=== PATIENT | male | born 1960 | race Caucasian/White ===

== ENCOUNTER 2019-04-14 05:46 | Outpatient (RCR) | payer MEDICAID, SELFPAY | END 2019-04-15 11:00 | disposition home or self-care (01) | LOC: ONCRAD 05:46 | PROVIDERS: Family Provider Nurse Practitioner; Referring Provider Internal Medicine Medical Oncology; Visit Provider Radiology Radiation Oncology | DX: Z51.0 Encounter for antineoplastic radiation therapy (principal); C34.31 Malignant neoplasm of lower lobe, right bronchus or lung; R04.2 Hemoptysis; F17.210 Nicotine dependence, cigarettes, uncomplicated; Z79.891 Long term (current) use of opiate analgesic | CPT/HCPCS: 77280; 77290; 77300; 77301; 77334; 77338; 77386 ×2; 99205 ==

== ENCOUNTER 2019-04-15 17:45 | Inpatient (IN) | payer MEDICAID, SELFPAY | END 2019-04-18 14:30 | disposition skilled nursing facility (03) | DRG 871 | PROVIDERS: Admitting Provider Internal Medicine; Family Provider Nurse Practitioner; Visit Provider Family Medicine | DX: A41.9 Sepsis, unspecified organism (principal); J18.9 Pneumonia, unspecified organism; C34.90 Malignant neoplasm of unspecified part of unspecified bronchus or lung; E87.1 Hypo-osmolality and hyponatremia; R04.2 Hemoptysis; M54.5 Low back pain; G89.29 Other chronic pain; J43.9 Emphysema, unspecified; K21.9 Gastro-esophageal reflux disease without esophagitis; E03.9 Hypothyroidism, unspecified; Z87.442 Personal history of urinary calculi; F41.8 Other specified anxiety disorders; I25.10 Atherosclerotic heart disease of native coronary artery without angina pectoris; F17.210 Nicotine dependence, cigarettes, uncomplicated; Z79.891 Long term (current) use of opiate analgesic ==

== ENCOUNTER 2019-04-19 06:10 | Outpatient (RCR) | payer MEDICAID, SELFPAY | END 2019-04-26 00:01 | LOC: LAB 06:10 | PROVIDERS: Family Provider Nurse Practitioner; Visit Provider Family Medicine | DX: E03.9 Hypothyroidism, unspecified (principal); R52 Pain, unspecified; J44.9 Chronic obstructive pulmonary disease, unspecified; F41.9 Anxiety disorder, unspecified | CPT/HCPCS: 36415; 80053 ×2; 80061 ×2; 84439 ×2; 84443 ×2; 85025 ×2 ==

== ENCOUNTER 2019-04-22 17:15 | Inpatient (IN) | payer MEDICAID, SELFPAY | END 2019-04-26 20:04 | disposition home or self-care (01) | DRG 882 | LOC: NP 04-26 09:41 | PROVIDERS: Admitting Provider Psychiatry & Neurology Psychiatry; Family Provider Nurse Practitioner; PCP Nurse Practitioner; Referring Provider Nurse Practitioner; Visit Provider Psychiatry & Neurology Psychiatry | DX: F43.25 Adjustment disorder with mixed disturbance of emotions and conduct (principal); R45.851 Suicidal ideations; Z28.21 Immunization not carried out because of patient refusal; F17.210 Nicotine dependence, cigarettes, uncomplicated; E11.9 Type 2 diabetes mellitus without complications; I25.10 Atherosclerotic heart disease of native coronary artery without angina pectoris; I11.0 Hypertensive heart disease with heart failure; I50.9 Heart failure, unspecified; G89.29 Other chronic pain; M54.9 Dorsalgia, unspecified; F41.9 Anxiety disorder, unspecified; Z91.5 Personal history of self-harm; J43.9 Emphysema, unspecified | CPT/HCPCS: 99239 ==

== ENCOUNTER 2019-05-03 05:46 | Outpatient (RCR) | payer MEDICAID, SELFPAY ==
--- NOTE | 2019-05-03 11:38 | ONCRAD TMN_ITS ---
Radiation Oncology Weekly Treatment Management Patient: Kade Adams MR#: [id number] : 1960 Age: 58 Sex: Male Dictated by: Dr. Mario Johnston Date of Service: 05/03/2019 Referring Physician(s) : Irving Dixon M.D. Primary Diagnosis: C34.91 - Malignant neoplasm of unspecified part of right bronchus or lung, Diagnosed 03/25/2019 (Active) Radiotherapy to date: Course: RT Lung 50Gy, Treatment Site: RT Lung 50Gy, Ref. ID: [id number], Energy: 6X, Dose/Fx (cGy): 250, #Fx: , Dose Correction (cGy): 0, Total Dose (cGy): 1,750, Start Date: 04/13/2019, Elapsed Days: 20 Current Complaints/Interval History: Constitutional Complains of lack of appetite, severe fatigue and weight loss of 5.6 lbs. since last OTV on 04/13/19. Complains of significant pain in b/l lower extremities. Denies fever and night sweats. ENMT Denies odynophagia or dysphagia. Respiratory Complains of a severe cough, chronic dyspnea associated with more than usual activities and hemoptysis that is streaky and is worse in the morning. Current Medications: Cyproheptadine HCl, cytomel, dexamethasone, dULoxetine HCl, duragesic-50, duragesic-50, ibuprofen, mirtazapine, oxyCODONE HCl, oxyCODONE HCl, pantoprazole Sodium, qUEtiapine Fumarate, senokot S. Allergies: Bleach and Ammonia. Vital Signs: Performed on 05/03/2019 10:50 AM BMI - 21.086 kg/m2, Height - 59.00 in, Weight - 104.4 lbs, Temperature - 98.9 f, Pulse - 112, Respiration - 20, O2 Sat - 99 %, Pain - 7, BP - 125/ 77 mm(hg) Physical Exam: Appears stable, no skin erythema or desquamation. Performance Status: 2 - Ambulatory/capable of all self-care, unable to perform any work activities. Up and about more than 50% of waking hours. (ECOG) Lab: None pending in Radiation Oncology. Imaging: No new diagnostic imaging was performed since the last weekly treatment visit. All radiation therapy related imaging (including but not limited to CBCT generated images) was reviewed. Appropriate changes, if any, were made to assure accurate target localization. Impression/Plan: Tolerating treatment well with expected side effects. Continue treatment as planned. The patient has had multiple questions about the prognosis and indicated that he does not care about prolonging his life while he is in severe pain. I have explained to him about the diagnosis and nature of his lung cancer as well as the goal of current treatment. He expressed good understanding and questions were answered to his satisfaction. He said he has blood clots and will see Dr. Dixon for treatment and discussion of his pain in the lower extremities. I encouraged him to go to see Dr. Dixon. CPT: 32300 Signed by: Dr. Mario Johnston>05/03/2019 11:37:02 AM <<Signature on File>>
== END 2019-05-27 23:59 | disposition home or self-care (01) ==
LOC: ONCRAD 05:46
PROVIDERS: Family Provider Nurse Practitioner; Referring Provider Radiology Radiation Oncology; Visit Provider Radiology Radiation Oncology
DX: Z51.0 Encounter for antineoplastic radiation therapy (principal); C34.91 Malignant neoplasm of unspecified part of right bronchus or lung; R63.4 Abnormal weight loss; M79.605 Pain in left leg; M79.604 Pain in right leg; Z79.891 Long term (current) use of opiate analgesic
CPT/HCPCS: 77014; 77336; 77386; 77427

== ENCOUNTER 2019-06-17 11:35 | Outpatient (CLI) | payer MEDICAID, SELFPAY | END 2019-06-17 11:36 | disposition home or self-care (01) | LOC: ONCMED 15:32 | PROVIDERS: Family Provider Nurse Practitioner; Visit Provider Internal Medicine Medical Oncology | DX: Z01.89 Encounter for other specified special examinations (principal) ==

== ENCOUNTER 2019-06-23 05:46 | Outpatient (RCR) | payer MEDICAID, SELFPAY ==
[2019-06-01 16:22] LABS: Basophils % 0.1 %; Eosinophils % 0.1 %; Hematocrit 37.9 % (42.0-52.0); Hemoglobin 12.2 g/dL (11.7-16.6); Lymphocytes % 11.8 %; Mean Corpuscular HGB Conc 32.2 g/dL (30.0-36.0); Mean Corpuscular Hemoglobin 29.4 pg (28.0-34.0); Mean Corpuscular Volume 91.3 fL (80-94); Mean Platelet Volume 9.9 fL (7.4-10.4); Monocytes # 1.5 10^3/uL (0.2-0.9); Monocytes % 8.9 %; Neutrophils # 12.9 10^3/uL (1.8-7.7); Neutrophils % 78.1 %; Nucleated Red Blood Cells % 0 %; Platelet Count 226 10^3/cmm (130-400); Red Blood Count 4.15 10^6/uL (4.1-5.3); Red Cell Distribution Width 16.1 % (12.1-15.1); White Blood Count 16.5 10^3/uL (4.0-10.0)
[2019-06-01 16:50] LABS: Alanine Aminotransferase < 5 U/L (0-41); Albumin Level 3.1 g/dL (3.5-5.2); Alkaline Phosphatase 138 IU/L (40-130); Anion Gap 19.3 (5-19); Aspartate Amino Transferase 10 U/L (0-40); Blood Urea Nitrogen 10 mg/dL (6-20); Calcium 9.2 mg/dL (8.5-10.5); Carbon Dioxide 24 mmol/L (22-29); Chloride 95 mmol/L (98-107); Globulin 3.6 g/dL (1.3-4.6); Glomerular Filtration Rate 220.9 mL/min (90-130); Glucose 126 mg/dL (65-115); Potassium 4.3 mmol/L (3.5-5.1); Sodium 134 mmol/L (136-145); Thyroid Stimulating Hormone 0.41 uIU/mL (0.27-4.20); Total Bilirubin 0.3 mg/dL (0.15-1.2); Total Protein 6.7 g/dL (6.6-8.7)
--- NOTE | 2019-06-05 21:35 | ONC FU_ITS ---
[facility] Patient Note Patient: Kade Perez Unit #: [id number]: 1960 Dictated By: Daryn MccrayDate of Visit: Jun 02, 2019 Onc MED Follow-Up/Prog Note Chief Complaint: Non-small cell carcinoma involving the lower lobe of the RIGHT lung History of Present Illness: Mr. 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 He has had multiple medical illnesses including COPD and CHF as well as GERD, hypothyroidism, nephrolithiasis, and depression. He has a long history of smoking up to 2 packs of cigarettes daily and he has a history of substance abuse. In March [address] pulmonary angiogram done to the emergency room for suspected pulmonary embolism. There was no evidence of pulmonary embolism on that study but it did show a left lower lobe superior segment spiculated nodule measuring 2.3 x 1.2 x 3.1 cm which was felt to be suspicious for neoplasm. An additional nodule in the right lower lobe posterior segment measured 1.1 x 1.7 x 1.1 cm. He declined any further evaluation at that time. On February 20, [address] from angiogram done to the emergency room. The study again was negative for pulmonary embolism but there was a dense consolidation noted in the right lower lobe and increase in size of the right lower lobe spiculated nodule. He was admitted to the Neuropsych Unit for depression and suicidal ideation on 02/28/2019 and again on 03/10/2019. CT scans of the chest, abdomen and pelvis on 03/18/2019 showed nodular density at the left lung base measuring 2.78 cm and progressive changes consistent with a large tumor involving the basilar portion of the right lower lung. Multiple hypodensities in the liver appeared stable and were felt to be consistent with cyst. The left adrenal gland appears slightly prominent measuring 3.0 cm. Bronchoscopy on 03/22/2019 showed a fungating mass lesion in the superior segment of the right lower lobe as well as lateral and posterior basal segments of the right lower lobe. Right upper lobe and right middle lobe bronchi appeared normal on the bronchoscopy. The left bronchial tree also showed no abnormalities. Biopsies from the right lower lobe mass showed poorly differentiated carcinoma. Mr. Perez was seen Dr. Dixon as an inpatient on 03/31/2019 for consultation for the newly diagnosed lung cancer. At that time he had been feeling very poorly from a general standpoint. 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 He states he lost at least 40 pounds in the last year. He feels that he has some low-grade fever at times and intermittent sweating. He has had no complains of headache but has occasional lightheadedness. He stated that he had been short of breath with activity and had had persistent cough. He has been having some intermittent hemoptysis as well. He complained of pain in the mid chest area. He also been having a lot of nausea and gastritis symptoms. He had had significant musculoskeletal pain mainly in the joints and predominantly in the lower extremities. He did not have any focal neurological symptoms at that time. It was recommended that he have palliative radiation and pursue complete staging with PET CT and MRI of the brain. The PET CT and MRI were set up to be done as outpatient. However in the meantime he was started on extended release morphine and MSIR for breakthrough pain. PET/CT imaging from 04/09/2019 reported a poorly defined right lower lobe consolidation measuring roughly 6.4 x 3.9 cm with an SUV of 12.2. Malignancy cannot be reliably differentiated from adjacent atelectasis. A right lower lobe perihilar node has SUV of 9.5 indicating metastatic disease. There was a 2.8 x 2.0 cm nodule in the superior segment of the left lower lobe with an SUV of 6.3, consistent with metastasis. Mediastinal nodes and there anterior right prevascular and subcarinal regions are FDG negative, consistent with local metastatic disease. A right hepatic lobe hypodensity is FDG negative. There were no findings to indicate osseous metastatic disease. Mr. Perez presented for radiation of the right lung however his visits were inconsistent and he did not complete the recommended therapy. He received 7 out of 20 recommended fractions. His start date was 04/13/2019 and the end of treatment was documented as 05/03/2019. Mr. Perez did have [employer] sequencing performed by [facility]. His PD-L1 (22c3) IHC was positive, high expression, TPS: 50%. ALK was negative/0. BRAF by IHC V600E was negative. EGFR [id number] by IHC was negative. EGFR L85 BR by IHC was equivocal and there is no results were reported for this biomarker. Mismatch repair status by IHC was proficient. TrkA/B/C by IHC was negative/0. MLH1 and MSH2 were both reported as positive positive/14, 60%. MSH6 positive/14, 10%. PM52 was positive/14/10%. PTEN positive/14/60%. All biomarkers tested by sequencing were found to have quality not sufficient and therefore not reported. Given the results of the [facility] report, Mr Perez was offered treatment with immunotherapy with pembrolizumab. He is here today to start his first cycle. He is accompanied by his sister. He reports that he is now living with her. She reports that he is gained some weight and is doing much better since he began living with her. He has no new concerns today. He is very responsive and participates in his care well. We did review all the medications that he brought in and we are able to dispose of some extra/repetitive bottles of current prescriptions that he had. This helped clarify why he needed to be taking. He has not had any recent hemoptysis. He states his pain is about the same. He states that after he switched to the Duragesic and oxycodone he feels that the morphine controlled release works better than the Duragesic for his pain. He does feel the oxycodone works well for breakthrough. After discussion with Dr. Dixon will will resume his MS Contin at 60 mg every 12 hours and continue his oxycodone. He denies any headaches or vision changes. He has had no recent nausea or vomiting. He states his appetite is fair. He states he is eating better since living with his sister. He has no new concerns today. His ECOG is 2 Past Medical History: Chronic obstructive pulmonary disease Congestive heart failure Depression Emphysema Gastroesophageal reflux disease Hypothyroidism Nephrothiliasis Past Surgical History: Lithotripsy with left ureteral stent placement Allergies: Ammonia and Bleach. Medications: Cyproheptadine HCl 1 (4 mg) Tablet Oral at bedtime Cytomel 2 Tablet (of 5 mcg) Oral daily Dexamethasone 1 Tablet (of 4 mg) Oral b.i.d. DULoxetine HCl 1 (60 mg) Capsule Delayed Release Particles Oral daily Duragesic-50 1 (50 mcg/hr) Patch 72 Hr Transdermal q 72 hours Ibuprofen 1 (600 mg) Tablet Oral q 6 hours Liothyronine Sodium 2 Tablet (of 5 mcg) Oral daily Mirtazapine 1 (30 mg) Tablet Oral at bedtime Ondansetron HCl 1 Tablet (of 4 mg) Oral q 8 hours PRN oxyCODONE HCl 0.5 - 1 (30 mg) Tablet Oral q 4 hours PRN Pantoprazole Sodium 1 (40 mg) Tablet, enteric coated Oral b.i.d. QUEtiapine Fumarate 2 Tablet (of 300 mg) Oral at bedtime Redness Reliever Eye Drops Solution Ophthalmic daily Senokot S 2 Tablet (of 8.6-50 mg) Oral b.i.d. traZODone HCl 1 Tablet (of 100 mg) Oral at bedtime Zolpidem Tartrate 1 Tablet (of 5 mg) Oral at bedtime Family History: Social History: Mr. Perez is and he is unemployed. He is a daily smoker who has smoked 2.0 packs/day for 49 years. He is a former drinker. Mr. Perez reports the following support systems: lives in a detention and adequate transportation available for expected visits. His diet consists of regular meals. He indicates his activity level as: sedentary. Is smoking less and is currently using the Electronic cigarettes. Review Of Symptoms: Constitutional Denies fevers, chills, night sweats, excessive fatigue or recent weight loss. Allergic/Immunologic No reactions. Eyes Denies significant visual changes. No diplopia. No amaurosis. ENMT Denies changes in hearing, sore throat, mouth sores, difficulty or changes in swallowing ability, and/or sinus drainage. Endocrine No diabetes, thyroid disease or hormone replacement. Denies hot flashes or night sweats. Hematologic/Lymphatic Denies easy bruising or bleeding. The patient denies any tender or palpable lymph nodes. Respiratory Denies dyspnea on exertion, chest pain, cough or hemoptysis. Denies orthopnea. Cardiovascular Denies anginal chest pain, palpitations or orthopnea. Gastrointestinal Denies nausea, vomiting, diarrhea, GI bleeding, or constipation. Denies change in bowel habits and/or stool color, no heartburn or early satiety. Genitourinary (M) Denies hematuria, dysuria, increased frequency, urgency, hesitancy or incontinence. Musculoskeletal Persistent joint pain but denies swelling or redness. No decreased range of motion. Integumentary Denies chronic rashes, inflammation, ulcerations or skin changes. Neurologic Denies headache, blurred vision, and no areas of focal weakness or numbness. Slow gait. No sensory problems. Psychiatric Denies current problems with insomnia, depression, digna or mood swings. Vital Signs: Performed on Jun 02, 2019 15:25 Height - 59.00 in Weight - 133.8 lbs (LOW) BSA - 1.55 sq.m BMI - 27.02 Temperature - 97.3 F (LOW) Pulse - 101 /min (HIGH) Respiration - 18 /min BP - 128/92 mm(hg) O2 Sat - 99 % Pain - 6,2 - Ambulatory/capable of all self-care, unable to perform any work activities. Up and about more than 50% of waking hours. (ECOG) Physical Examination: Constitutional Alert, oriented, no acute distress. Skin pink, warm and dry. Head Normocephalic; atraumatic. Eyes Conjunctivae and sclerae are clear and without icterus. Pupils are reactive and equal. Neck Supple without masses or thyromegaly. No jugular venous distension. Hematologic/Lymphatic No petechiae or purpura. No tender or palpable lymph nodes in the cervical or supraclavicular areas. Respiratory Lungs are clear to auscultation without rhonchi or wheezing. Cardiovascular Regular rate and rhythm of heart without murmurs,clicks, gallops or rubs. Back/Spine Non-tender to palpation. Extremities No visible deformities, no cyanosis, clubbing or edema. Musculoskeletal No tenderness or swelling, normal range of motion without obvious weakness. Integumentary No rashes or lesions. Neurologic No sensory or motor deficits, normal cerebellar function, normal gait. Psychiatric Alert and oriented times three. Coherent speech. Verbalizes understanding of our discussions today. Laboratory: Impression: 1. Newly diagnosed non small cell carcinoma of the right lower lobe-PD-L1 positive by IHC. 2. Right lower lobe perihilar nodule with an SUV of 9.5; 2.8 x 2 point centimeter nodule in superior segment of the left lung lower lobe-consistent with metastasis. Mediastinal nodes in the anterior right perivascular and subcarinal node are FDG G+ consistent with local metastatic disease. He also has significant pain in the lower extremities presumed to be related to the underlying malignancy although no known bone metastases have been identified. 3. COPD 4. GERD. 5. Hypothyroidism. 6. Nephrolithiasis. 7. There is reported history of coronary artery disease and congestive heart failure, but this is not confirmed. 8. Longstanding history of anxiety/depression. 9. Deep vein thrombosis affecting the left popliteal and deep calf veins on 04/24/2019. Reportedly received Lovenox and patient was discharged without anticoagulation. He will start Eliquis starter pack today which consist of 10 mg twice daily for 7 days then 5 mg twice daily. Mr Perez has been informed by Dr Dixon and Dr Johnston that his treatment is pallative. He did not complete the recommended radiation therapy. He has agreed to a trial of immunotherapy with pembrolizumab. He will start his first cycle today. Plan: 1. Proceed with cycle 1 pembrolizumab 200 mg. 2. Labs from June 01, 2019 were reviewed in detail discussed with Mr. Allegra Levin and his sister. WBC 16.5, hemoglobin 12.2, platelets 226,000, ANC is 12,900. Potassium 4.3 creatinine 0.4 LFTs are normal alk phos is 138. TSH is 0.41. 3. He will stop the Duragesic patch and resume morphine extended release at 60 mg every 12 hours. He also had refill on his oxycodone. Both prescriptions were authorized with Dr. Dixon???written prescription. 4. We will plan to see him back in 3 weeks with CBC, CMP and TSH. 5. He also had refills of his guaifenesin, Ambien and pro-air HFA. 6. It was elected to start him on Eliquis starter pack due to findings on the left lower extremity venous Doppler from 04/24/2019. The common femoral, femoral and proximal from the femoral veins were patent without thrombus however there was acute deep vein thrombosis affecting the popliteal and deep calf veins. He reportedly received Lovenox in the hospital but was discharged without any anticoagulation. He is aware of the initiation of the Eliquis and will pick it up today. 7. Specific side effects of immunotherapy discussed included but not limited to: ???Pneumonitis: New or worsening cough; chest pain; and shortness of breath. ???Colitis: Diarrhea or more bowel movements than usual; blood in stools or dark, tarry, sticky stools; and severe stomach area (abdomen) pain or tenderness. ???Hepatitis: Jaundice; severe nausea or vomiting; pain on the right side of the abdomen; drowsiness; dark urine; bleeding or bruise more easily than normal. ???Nephritis and Kidney Failure: Including decrease in amount of urine; hematuria; lower extremity edema; and loss of appetite. ???Thyroid and Pituitary changes that may include: Headaches that will not go away or unusual headaches; extreme tiredness, weight gain or weight loss; changes in mood or behavior, such as decreased sex drive, irritability, or forgetfulness; dizziness or fainting; hair loss; feeling cold; constipation; and voice gets deeper. ???Rash: Changes in eyesight; severe or persistent muscle or joint pains; and severe muscle weakness. The majority of this visit (greater than 45 minutes) was time spent face to face in review of plan of care, side effect identification and where to call for questions or concerns. Signed By: Daryn Mccray-, AOCNP Irving Dixon MD <<Signature on File>>
[2019-06-17 14:39] LABS: Basophils % 0.1 %; Eosinophils % 0.2 %; Hematocrit 40.2 % (42.0-52.0); Hemoglobin 12.6 g/dL (11.7-16.6); Lymphocytes # 1.2 10^3/uL (0.8-4.8); Lymphocytes % 11.9 %; Mean Corpuscular HGB Conc 31.3 g/dL (30.0-36.0); Mean Corpuscular Hemoglobin 28.2 pg (28.0-34.0); Mean Corpuscular Volume 89.9 fL (80-94); Mean Platelet Volume 9.7 fL (7.4-10.4); Monocytes # 0.7 10^3/uL (0.2-0.9); Monocytes % 6.9 %; Neutrophils # 8.1 10^3/uL (1.8-7.7); Neutrophils % 80.1 %; Nucleated Red Blood Cells % 0 %; Platelet Count 229 10^3/cmm (130-400); Red Blood Count 4.47 10^6/uL (4.1-5.3); Red Cell Distribution Width 15.5 % (12.1-15.1); White Blood Count 10.1 10^3/uL (4.0-10.0)
[2019-06-17 15:19] LABS: Alanine Aminotransferase 11 U/L (0-41); Albumin Level 3.4 g/dL (3.5-5.2); Alkaline Phosphatase 140 IU/L (40-130); Anion Gap 18.7 (5-19); Aspartate Amino Transferase 20 U/L (0-40); Blood Urea Nitrogen 10 mg/dL (6-20); Carbon Dioxide 31 mmol/L (22-29); Chloride 88 mmol/L (98-107); Globulin 4.1 g/dL (1.3-4.6); Glomerular Filtration Rate 170.8 mL/min (90-130); Glucose 107 mg/dL (65-115); Potassium 3.7 mmol/L (3.5-5.1); Sodium 134 mmol/L (136-145); Total Bilirubin 0.4 mg/dL (0.15-1.2); Total Protein 7.5 g/dL (6.6-8.7)
[2019-06-22 12:04] LABS: Basophils % 0.2 %; Eosinophils % 0.1 %; Hematocrit 37.1 % (42.0-52.0); Hemoglobin 11.3 g/dL (11.7-16.6); Lymphocytes # 1.2 10^3/uL (0.8-4.8); Lymphocytes % 10.9 %; Mean Corpuscular HGB Conc 30.5 g/dL (30.0-36.0); Mean Corpuscular Hemoglobin 28.2 pg (28.0-34.0); Mean Corpuscular Volume 92.5 fL (80-94); Mean Platelet Volume 10.2 fL (7.4-10.4); Monocytes # 0.5 10^3/uL (0.2-0.9); Monocytes % 4.7 %; Neutrophils % 82.5 %; Nucleated Red Blood Cells % 0 %; Platelet Count 343 10^3/cmm (130-400); Red Blood Count 4.01 10^6/uL (4.1-5.3); Red Cell Distribution Width 16.2 % (12.1-15.1)
[2019-06-22 12:41] LABS: Alanine Aminotransferase 7 U/L (0-41); Alkaline Phosphatase 114 IU/L (40-130); Anion Gap 16.6 (5-19); Aspartate Amino Transferase 12 U/L (0-40); Blood Urea Nitrogen 11 mg/dL (6-20); Calcium 9.1 mg/dL (8.5-10.5); Carbon Dioxide 26 mmol/L (22-29); Chloride 99 mmol/L (98-107); Globulin 3.3 g/dL (1.3-4.6); Glomerular Filtration Rate 220.9 mL/min (90-130); Glucose 149 mg/dL (65-115); Potassium 4.6 mmol/L (3.5-5.1); Sodium 137 mmol/L (136-145); Thyroid Stimulating Hormone 0.28 uIU/mL (0.27-4.20); Total Bilirubin 0.2 mg/dL (0.15-1.2); Total Protein 6.3 g/dL (6.6-8.7)
== END 2019-06-25 23:59 | disposition home or self-care (01) ==
LOC: ONCMED 05:46
PROVIDERS: Family Provider Nurse Practitioner; Referring Provider Radiology Radiation Oncology; Visit Provider Nurse Practitioner
DX: Z51.12 Encounter for antineoplastic immunotherapy (principal); C34.31 Malignant neoplasm of lower lobe, right bronchus or lung; C78.02 Secondary malignant neoplasm of left lung; C77.1 Secondary and unspecified malignant neoplasm of intrathoracic lymph nodes; F41.8 Other specified anxiety disorders; K21.9 Gastro-esophageal reflux disease without esophagitis; E03.9 Hypothyroidism, unspecified; F17.210 Nicotine dependence, cigarettes, uncomplicated; G89.3 Neoplasm related pain (acute) (chronic); J43.9 Emphysema, unspecified; Z79.891 Long term (current) use of opiate analgesic; Z79.01 Long term (current) use of anticoagulants; Z79.899 Other long term (current) drug therapy; Z87.442 Personal history of urinary calculi; Z92.3 Personal history of irradiation; Z86.718 Personal history of other venous thrombosis and embolism
CPT/HCPCS: 80053; 84443; 85025; 87493; 96413; 99215; J7050; J9271

== ENCOUNTER 2019-07-04 16:12 | Emergency (ER) | payer MEDICAID, SELFPAY ==
[2019-07-04 16:44] VITALS: BP 106/72; PULSE 110; RESP 20; TEMP 36.6; O2SAT 96; BMI 19.6
--- NOTE | 2019-07-04 17:18 | ED_ITS ---
Documented by User: ALBERTO Foster 07/05/19 13:33 HPI - Extremity Problem General: Chief complaint: Extremity Problem,Nontraumatic Stated complaint: LEG PAIN Time Seen by Provider: 07/04/19 17:13 History of Present Illness: HPI Narrative: Patient is a 58-year-old male comes into the ED with left leg pain and swelling. Patient is currently taking a apixaban and has had blood clots in the past. Patient says he ran out of his blood clot medicine and had not taken it for about 3 to 4 days. He just got his apixaban medication refilled today and he took his first dose today. He noticed yesterday that he started getting the left leg pain and swelling. Denies any shortness of breath or cough or coughing up any blood. Associated symptoms: Deny chest pain, fever(s) or rash Review of Systems Const: Denies: fever, chills or fatigue Eyes: Denies: change in vision or eye discomfort ENMT: Denies: throat pain, painful swallowing, nasal discharge or nasal conge stion Card: Denies: chest pain, palpitations, edema, swelling of feet/ankles, shortness of breath on exertion or shortness of breath when lying down Resp: Denies: shortness of breath, productive cough or non-productive cough GI: Denies: abdominal pain, nausea, vomiting, diarrhea, constipation or blood in stool : Denies: flank pain, difficulty urinating, painful urination or blood in urine Musc: Reports: extremity pain (left leg) and extremity swelling (left leg); Denies: neck pain or back pain Skin/Breast: Denies: rash or new lesion Neuro: Denies: headache, numbness in extremities or weakness in extremities PFSH ED PFSH: Medical History Bipolar depression Chronic emphysema syndrome COPD (chronic obstructive pulmonary disease) GERD (gastroesophageal reflux disease) Lung cancer Surgical History Status post laser lithotripsy of ureteral calculus Family History Other CAD (coronary artery disease) Social History Smoking and tobacco status: current every day smoker cigarettes Packs smoked per day: 0.25 Alcohol intake: current Alcohol intake frequency: 0-2 Drinks per Day Physical Exam Const: COMMON NORMALS: oriented x3 HENMT: COMMON NORMALS: normocephalic HEAD & SCALP: normocephalic MOUTH: oral and palatal mucosa normal THROAT: posterior oropharynx normal and uvula midline Neck/C-Spine: COMMON NORMALS: supple GENERAL: Yes normal visual inspection Resp: COMMON NORMALS: normal respiratory effort, no retractions, no use of accessory muscles and clear to auscultation bilaterally AUSCULTATION: clear to auscultation bilaterally Cardio: COMMON NORMALS: regular rate, regular rhythm, S1 normal heart sound, S2 normal heart sound, no gallops, no clicks, no murmurs and peripheral pulses 2+ throughout RATE: regular rate RHYTHM: regular rhythm HEART SOUNDS: S1 normal and S2 normal PERIPHERAL PULSES: pulses 2+ throughout GI: COMMON NORMALS: normal to inspection, nondistended, normoactive bowel sounds, soft to palpation, non-tender and no masses PALPATION: Yes soft : COMMON NORMALS: Yes no CVA tenderness BLADDER/KIDNEY EXAM: Yes no CVA tenderness Back/Pelvis: COMMON NORMALS: no CVA tenderness Extremity: COMMON NORMALS: normal capillary refill LEFT LOWER EXTREMITY: Yes lower leg Left lower leg: Yes inspection (2+ pitting edema), Yes palpation (tender throughout lower leg) and Yes neurovascular exam (Intact, 2+ pulse) Neuro: COMMON NORMALS: oriented x3 and moves all extremities Skin: COMMON NORMALS: no rashes or lesions noted GENERAL SKIN EXAM: no rashes or lesions noted Course ED course: I explained what Dr. Dixon recommended about taking Lovenox twice a day for the next 7 days and then going back to patient's apixaban dose. Pt agreed with plan and understood it. I told pt he needs to see his PCP within the next 5-7 days to discuss blood thinner management. Consultations: Consultation #1: I spoke with the amphibious operations officer mud mixer operator/o ncologist Dr. Dixon. He recommended that patient go on Lovenox for 7 days at 1mg/kg dose twice a day, and then after 7 days he can go back on his regular apixaban 5 mg twice a day dose. Time: 18:20 Vital Signs: Vital signs: Vital Signs Temperature 97.9 F 07/04/19 16:44 Pulse Rate 78 07/04/19 18:50 Respiratory Rate 18 07/04/19 18:50 Blood Pressure 104/63 07/04/19 18:50 Pulse Oximetry 96 07/04/19 18:50 MDM - Extremity (Nontraumatic) Imaging Data^: US Vascular: Attestation: I personally reviewed and interpreted this imaging study as follows: Radiologist's impression: Prelim report?patient has a DVT and clots seen in the left leg. technical solution architect said the saphenous vein is the only one that is open and not occluded. Discharge Plan Discharge Patient Disposition: Home, Self-Care Clinical Impression: Deep vein thrombosis of lower extremity Qualifiers: Affected thrombotic vein of extremity: popliteal Chronicity: acute Laterality: left Qualified Code(s): I82.432 - Acute embolism and thrombosis of left popliteal vein Condition: Stable Prescriptions: New Lovenox 60 mg/0.6 mL syringe 60 mg SUBCUT Q12H Qty: 6 RF: 0 No Action cyproheptadine 4 mg tablet 4 mg PO .at bedtime RF: 0 quetiapine 300 mg tablet 300 mg PO DAILY RF: 0 dexamethasone 4 mg tablet 4 mg PO BID RF: 0 trazodone 100 mg tablet 100 mg PO DAILY RF: 0 pantoprazole 40 mg tablet,delayed release (DR/EC) 40 mg PO DAILY RF: 0 mirtazapine 30 mg tablet 30 mg PO DAILY RF: 0 liothyronine 5 mcg tablet 10 mcg PO DAILY RF: 0 pembrolizumab IVP RF: 0 Eliquis 5 mg tablet 5 mg PO BID RF: 0 alprazolam 0.5 mg tablet 0.5 mg PO TID PRNRF: 0 morphine 60 mg tablet extended release 60 mg PO Q12H RF: 0 oxycodone 30 mg tablet 30 - 60 mg PO .[id number] PRNRF: 0 Symbicort 160-4.5 mcg/actuation HFA aerosol inhaler 2 puff INHALATION BID Qty: 10.2 RF: 0 Spiriva with HandiHaler 18 mcg capsule, w/inhalation device 1 cap INHALATION DAILY Qty: 30 RF: 0 albuterol sulfate 90 mcg/actuation HFA aerosol inhaler 1 inh INHALATION QID PRN (Reason: shortness of breath or wheezing) Qty: 8.5 RF: 0 guaifenesin [Mucinex] 1,200 mg tablet extended release 12hr 1,200 mg PO BID Qty: 60 RF: 0 Ensure Liquid 1 each PO TID Qty: 90 RF: 0 Discharge Orders: Discharge Order (Routine); Ordered 07/04/19 Ordered By: Gutierrez Ahumada Referrals: Yessenia Loja FNP [Family Provider] - Discharge Diet: Regular Discharge Activity: Resume usual activity Activity Restrictions/Additional Instructions: Follow-up with your PCP in 5 to 7 days for reevaluation. Do a Lovenox injection twice a day for the next 7 days. Then after 7 days you can start back up with your previous apixaban dose. Return to the ED if you have any symptoms such as shortness of breath or coughing up any blood. Discharge Date/Time: 07/04/19 18:52 Coding Level of Care Code ED Pantograph Machine Set Up Operator for Chg Fwd Exam Comprehensive Documented by User: Lauren Rivas 07/05/19 17:28 HPI - Extremity Problem General: Chief complaint: Extremity Problem,Nontraumatic Stated complaint: LEG PAIN Time Seen by Provider: 07/04/19 17:13 PFSH ED PFSH: Medical History Bipolar depression Chronic emphysema syndrome COPD (chronic obstructive pulmonary disease) GERD (gastroesophageal reflux disease) Lung cancer Surgical History Status post laser lithotripsy of ureteral calculus Family History Other CAD (coronary artery disease) Social History Smoking and tobacco status: current every day smoker cigarettes Packs smoked per day: 0.25 Alcohol intake: current Alcohol intake frequency: 0-2 Drinks per Day Course Vital Signs: Vital signs: Vital Signs Temperature 97.9 F 07/04/19 16:44 Pulse Rate 78 07/04/19 18:50 Respiratory Rate 18 07/04/19 18:50 Blood Pressure 104/63 07/04/19 18:50 Pulse Oximetry 96 07/04/19 18:50 MDM - Extremity (Nontraumatic) MDM Narrative: Medical decision making narrative: This patient was not seen by me nor evaluated by me nor discussed with me by the midlevel provider. I was available in the ER if needed throughout their stay but was not involved or contacted about their care. I am signing this chart per hospital policy ? Dr. Rivas. Discharge Plan Discharge Patient Disposition: Home, Self-Care Clinical Impression: Deep vein thrombosis of lower extremity Qualifiers: Affected thrombotic vein of extremity: popliteal Chronicity: acute Laterality: left Qualified Code(s): I82.432 - Acute embolism and thrombosis of left popliteal vein Condition: Stable Prescriptions: New Lovenox 60 mg/0.6 mL syringe 60 mg SUBCUT Q12H Qty: 6 RF: 0 No Action cyproheptadine 4 mg tablet 4 mg PO .at bedtime RF: 0 quetiapine 300 mg tablet 300 mg PO DAILY RF: 0 dexamethasone 4 mg tablet 4 mg PO BID RF: 0 trazodone 100 mg tablet 100 mg PO DAILY RF: 0 pantoprazole 40 mg tablet,delayed release (DR/EC) 40 mg PO DAILY RF: 0 mirtazapine 30 mg tablet 30 mg PO DAILY RF: 0 liothyronine 5 mcg tablet 10 mcg PO DAILY RF: 0 pembrolizumab IVP RF: 0 Eliquis 5 mg tablet 5 mg PO BID RF: 0 alprazolam 0.5 mg tablet 0.5 mg PO TID PRNRF: 0 morphine 60 mg tablet extended release 60 mg PO Q12H RF: 0 oxycodone 30 mg tablet 30 - 60 mg PO .[id number] PRNRF: 0 Symbicort 160-4.5 mcg/actuation HFA aerosol inhaler 2 puff INHALATION BID Qty: 10.2 RF: 0 Spiriva with HandiHaler 18 mcg capsule, w/inhalation device 1 cap INHALATION DAILY Qty: 30 RF: 0 albuterol sulfate 90 mcg/actuation HFA aerosol inhaler 1 inh INHALATION QID PRN (Reason: shortness of breath or wheezing) Qty: 8.5 RF: 0 guaifenesin [Mucinex] 1,200 mg tablet extended release 12hr 1,200 mg PO BID Qty: 60 RF: 0 Ensure Liquid 1 each PO TID Qty: 90 RF: 0 Discharge Orders: Discharge Order (Routine); Ordered 07/04/19 Ordered By: Gutierrez Ahumada Referrals: Yessenia Loja FNP [Family Provider] - Discharge Diet: Regular Discharge Activity: Resume usual activity Activity Restrictions/Additional Instructions: Follow-up with your PCP in 5 to 7 days for reevaluation. Do a Lovenox injection twice a day for the next 7 days. Then after 7 days you can start back up with your previous apixaban dose. Return to the ED if you have any symptoms such as shortness of breath or coughing up any blood. Discharge Date/Time: 07/04/19 18:52 Coding Level of Care Code ED Pantograph Machine Set Up Operator for Remigio Fweleazar Exam Comprehensive
--- NOTE | 2019-07-04 17:27 | USCV_ITS ---
Kade Adams Age: 58 Gender: M : 1960 Exam Date: 07/04/2019 17:41 Ordering Phys: Gutierrez Ahumada Technologist: Bhaskar Hillman [place] [facility] [place]: LT LEG PAIN AND SWELLING HISTORY: Lower extremity edema. PROCEDURES: Venous duplex imaging was performed in only the left lower extremity. The following venous structures were evaluated: common femoral vein, profunda vein, proximal portion of the greater saphenous vein, superficial femoral vein, and the popliteal vein. In addition, the posterior tibial and peroneal trunk were evaluated. FINDINGS: OCCLUDING DVT FROM THE LT CFV , FV , POPLETEAL TO THE PERINEAL TRUNK. CONCLUSIONS Deep venous thrombosis in the left lower extremity veins occluding the common femoral, deep femoral, superficial femoral and popliteal veins. The proximal greater saphenous vein is also occluded. Dr. Kim Mendes MD (Electronically Signed) Final Date: 05 July 2019 08:27 S
[2019-07-04] MEDS: enoxaparin 60 mg/0.6 mL Syringe SUBCUT (18:48)
[2019-07-04 18:50] VITALS: BP 104/63; PULSE 78; RESP 18; O2SAT 96
== END 2019-07-04 18:52 | disposition home or self-care (01) ==
PROVIDERS: Emergency Provider Physician Assistant; Family Provider Nurse Practitioner
DX: I82.412 Acute embolism and thrombosis of left femoral vein (principal); I82.432 Acute embolism and thrombosis of left popliteal vein; I82.812 Embolism and thrombosis of superficial veins of left lower extremity; J43.9 Emphysema, unspecified; F17.210 Nicotine dependence, cigarettes, uncomplicated; Z79.01 Long term (current) use of anticoagulants; Z79.51 Long term (current) use of inhaled steroids
CPT/HCPCS: 12345; 93971; 96372; 99281; 99283; J1650

== ENCOUNTER 2019-07-14 06:02 | Outpatient (RCR) | payer MEDICAID, SELFPAY ==
--- NOTE | 2019-07-14 16:13 | ONC FU_ITS ---
Dr. Dixon Patient Follow-Up Note Patient: Kade Adams Unit #: [id number]: 1960 Dicatated By: Irving Dixon M.D.Date of Visit:Jul 14, 2019 Onc Med Follow-up/Prog Note Chief Complaint: Non-small cell lung cancer. 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 He has had multiple medical illnesses including COPD and CHF as well as GERD, hypothyroidism, nephrolithiasis, and depression. He has a long history of smoking up to 2 packs of cigarettes daily and he has a history of substance abuse. In March [address] pulmonary angiogram done to the emergency room for suspected pulmonary embolism. There was no evidence of pulmonary embolism on that study but it did show a left lower lobe superior segment spiculated nodule measuring 2.3 x 1.2 x 3.1 cm which was felt to be suspicious for neoplasm. An additional nodule in the right lower lobe posterior segment measured 1.1 x 1.7 x 1.1 cm. He declined any further evaluation at that time. On February 20, [address] from angiogram done to the emergency room. The study again was negative for pulmonary embolism but there was a dense consolidation noted in the right lower lobe and increase in size of the right lower lobe spiculated nodule. He was admitted to the Neuropsych Unit for depression and suicidal ideation on 02/28/2019 and again on 03/10/2019. CT scans of the chest, abdomen and pelvis on 03/18/2019 showed nodular density at the left lung base measuring 2.78 cm and progressive changes consistent with a large tumor involving the basilar portion of the right lower lung. Multiple hypodensities in the liver appeared stable and were felt to be consistent with cyst. The left adrenal gland appears slightly prominent measuring 3.0 cm. Bronchoscopy on 03/22/2019 showed a fungating mass lesion in the superior segment of the right lower lobe as well as lateral and posterior basal segments of the right lower lobe. Right upper lobe and right middle lobe bronchi appeared normal on the bronchoscopy. The left bronchial tree also showed no abnormalities. Biopsies from the right lower lobe mass showed poorly differentiated adenocarcinoma. Staging PET/CT on 04/09/2019 reported a poorly defined right lower lobe consolidation measuring roughly 6.4 x 3.9 cm with an SUV of 12.2. A right lower lobe perihilar node had SUV of 9.5 indicating metastatic disease. There was a 2.8 x 2.0 cm nodule in the superior segment of the left lower lobe with an SUV of 6.3, consistent with metastasis. Mediastinal nodes and anterior right prevascular and subcarinal region lymph nodes were FDG positive, consistent with local metastatic disease. A right hepatic lobe hypodensity was FDG negative. There were no findings to indicate osseous metastatic disease. He was referred for palliative radiation to the right lung. However, his visits were inconsistent and he did not complete the recommended therapy. He received 7 out of 20 recommended fractions. His start date was 04/13/2019 and the end of treatment was documented as 05/03/2019. There were no actionable mutations reported. In particular, the EGFR and BRAF mutations were not detected, and the ROS1 and ALK rearrangements were not detected. With those findings, he was given the option to undergo trial of first-line immunotherapy with pembrolizumab. He received his initial infusion on 06/02/2019. He tolerated it without acute toxicity. He failed to return for his 3-week scheduled follow-up visit. On 07/04/2019 he was seen at the emergency room with pain and swelling in the left leg. His venous Doppler showed extensive deep vein thrombosis with associated occlusion of the common femoral, deep femoral, superficial femoral, and popliteal veins. He had been on anticoagulation with apixaban, but he had stopped taking at least 3 or 4 days prior to the episode. At that point he began anticoagulation with Lovenox 60 mg every 12 hours. He is seen now for a follow-up visit. His sister had communicated to us by phone that he had not been taking his medications. He has not been feeling good, in fact he says he feels worse day by day. He has no energy and no activity. His ECOG score is 3. His appetite is poor. He says that nothing appeals to him. He has not had fever or night sweats, but he does report having chills. He complains that he has been having a hard time with his memory and that he is having a lot of trouble with confusion. He has terrible sinus drainage. He reports having cough productive of thick grayish sputum. He has shortness of breath and he has deep pain in the left side of his chest, which he thinks is around his heart. He has nausea and he has acid reflux. He has ongoing problems with constipation. He is having difficulty voiding with very frequent urination, very small volume voids, and some incontinence. He has persistent swelling in the left leg and he has pain in both legs, left worse than right. He complains of having headache and dizziness, and he also complains of having numbness/tingling. He says he is bruising really bad. He has difficulty sleeping at night, and he has having significant problems with his anxiety and depression. Medications: Cyproheptadine HCl 1 (4 mg) Tablet Oral at bedtime, Cytomel 2 Tablet (of 5 mcg) Oral daily, Dexamethasone 1 Tablet (of 4 mg) Oral b.i.d., DULoxetine HCl 1 (60 mg) Capsule Delayed Release Particles Oral daily, Ibuprofen 1 (600 mg) Tablet Oral q 6 hours, Liothyronine Sodium 2 Tablet (of 5 mcg) Oral daily, Mirtazapine 1 (30 mg) Tablet Oral at bedtime, Morphine Sulfate ER 1 Tablet (of 60 mg) Tablet ER 12 HR Abuse-Deterrent Oral b.i.d., Ondansetron HCl 1 Tablet (of 4 mg) Oral q 8 hours PRN, oxyCODONE HCl 1 - 2 Tablet (of 30 mg) Oral q 4 hours PRN, Pantoprazole Sodium 1 (40 mg) Tablet, enteric coated Oral b.i.d., QUEtiapine Fumarate 2 Tablet (of 300 mg) Oral at bedtime, QUEtiapine Fumarate 1 Tablet (of 100 mg) Oral b.i.d., Redness Reliever Eye Drops Solution Ophthalmic daily, Senokot S 2 Tablet (of 8.6-50 mg) Oral b.i.d., traZODone HCl 1 Tablet (of 100 mg) Oral at bedtime, Zolpidem Tartrate 1 Tablet (of 5 mg) Oral at bedtime Allergies: Ammonia and Bleach. Review of Systems: Constitutional - His energy level is non-exsistant. He is unable to do anything at home. He has no appetite, but his weight is stable. No fever, chills, hot flashes, or night sweats. ECOG score is 3. , ENMT - He has sinus congestion/drainage. No mouth sores. No sore throat or difficulty swallowing, Hematologic/Lymphatic - He brusies easily. He is being treated for a blood clot in the left leg, Respiratory - No shortness of breath. He has a cough that produces thick brown phlegm. No pleuritic pain or hemoptysis, Cardiovascular - He is having some generalized chest pain. No palpitations, Gastrointestinal - No nausea or vomiting. He has heartburn, but he hasn't been taking his medication. No diarrhea. He has constipation. No blood in the stool or black stools, Genitourinary (M) - He has urinary frequency and urgency with very small volume voids, and he has some incontinence, Musculoskeletal - He has pain in both legs, left worse than right, Integumentary - No skin complications, Neurologic - He is having headache and he has dizziness. He has numbness and tingling. He states that he is having alot of difficulty with his memory and with concentration, Psychiatric - He has anxiety/depression. He has insomina. Vital Signs: Performed on Jul 14, 2019 13:04 Height - 59.00 in Weight - 143.6 lbs (HIGH) BSA - 1.60 sq.m BMI - 29.00 Temperature - 99.5 F (HIGH) Pulse - 130 /min (HIGH) Respiration - 24 /min BP - 101/62 mm(hg) O2 Sat - 93 % (LOW) Pain - 8 Physical Examination: Constitutional - He appears generally weak and chronically ill, Eyes - Sclerae nonicteric. Conjunctivae clear, ENMT - No lesions noted in the oral cavity, Hematologic/Lymphatic - No cervical, clavicular, or axillary adenopathy, Respiratory - Lungs show dminished air movement and coarse breath sounds bilaterally, Cardiovascular - Heart rythm is regular with a tachycardia. There is no murmur, gallop, or rub noted, Abdomen - Soft and non-tender. Liver and spleen are not enlarged. There is no abdominal mass or ascites noted and there is no inguinal adenopathy, Extremities - There is significant swelling and discoloration of the left leg. There is slight swelling on the right, Integumentary - No rashes. No suspicious skin lesions noted, Neurologic - No focal neurologic deficits noted. Impression: 1. 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 His tumor was found to have high PD-L1 expression (50%). 2. He has associated deep vein thrombosis of the left leg which occurred while on anticoagulation with apixaban, though with doubtful compliance. He is currently on anticoagulation with Lovenox, but compliance remains an issue. 3. He has been showing progressive decline in performance status. 4. He has underlying COPD. His other medical illnesses include: 5. GERD. 6. Hypothyroidism. 7. Nephrolithiasis. 8. Reported history of coronary artery disease and congestive heart failure, though unconfirmed. 9. Longstanding anxiety/depression. Patient was initially referred for palliative radiation due to hemoptysis. He was not compliant with the treatment. He was then given the option of a trial of first-line immunotherapy with pembrolizumab. He received his initial infusion on 06/02/2019. He tolerated it without acute toxicity. He then failed to return for his 3-week follow-up visit. He had subsequently been seen in the emergency room with the left lower extremity deep vein thrombosis. He continues to have significant pain and swelling in the left leg despite anticoagulation with Lovenox, though it is uncertain to what extent he is been compliant with the treatment. He has continued to show progressive decline in his overall condition and performance status. Some of this may also be associated with poor compliance, but I would have to assume that at least some component if not most of it is related to the underlying malignancy. Plan: We discussed options for further management. While there may potentially be benefit with immunotherapy in the setting of high PD-L1 expression, any benefit would be temporary, as his disease is advanced and incurable. It is also very unlikely that he would be consistent enough with treatment to have any significant benefit. The other option is to just continue with symptomatic/supportive care, in which case hospice referral would be appropriate and potentially very beneficial for him. Given the circumstances, he prefers to continue with his care at home with hospice and focus on his symptomatic management. I think it will be best, for now, to continue anticoagulation with Lovenox. Beyond that the main issue is to address his pain management and compliance with some of his other medications, particularly the antidepressants. I am planning to just see him again as needed. Signed By: Irving Dixon M.D. <<Signature on File>>
== END 2019-07-26 23:59 | disposition home or self-care (01) ==
LOC: ONCMED 06:02
PROVIDERS: Family Provider Nurse Practitioner; Referring Provider Radiology Radiation Oncology; Visit Provider Internal Medicine Medical Oncology
DX: Z51.5 Encounter for palliative care (principal); C34.31 Malignant neoplasm of lower lobe, right bronchus or lung; I82.402 Acute embolism and thrombosis of unspecified deep veins of left lower extremity; J44.9 Chronic obstructive pulmonary disease, unspecified; I50.9 Heart failure, unspecified; K21.9 Gastro-esophageal reflux disease without esophagitis; E03.9 Hypothyroidism, unspecified; F32.9 Major depressive disorder, single episode, unspecified; G47.00 Insomnia, unspecified; F41.8 Other specified anxiety disorders; Z79.01 Long term (current) use of anticoagulants; Z79.891 Long term (current) use of opiate analgesic; Z91.14 Patient's other noncompliance with medication regimen; Z87.442 Personal history of urinary calculi; Z92.3 Personal history of irradiation; Z92.25 Personal history of immunosuppression therapy
CPT/HCPCS: 99214

== ENCOUNTER 2019-07-23 18:42 | Emergency (ER) | payer MEDICAID, SELFPAY ==
[2019-07-23 19:05] VITALS: BP 147/102; RESP 18; TEMP 36.4; BMI 21.1
--- NOTE | 2019-07-23 19:09 | XRR_ITS ---
PROCEDURE INFORMATION: Exam: XR Chest, 1 View Exam date and time: 07/23/2019 7:35 PM Age: 58 years old Clinical indication: Cough TECHNIQUE: Imaging protocol: XR of the chest Views: 1 view. COMPARISON: No relevant prior studies available. FINDINGS: Lungs: There is consolidation in the right lower lobe of the lung. The left lung is clear. Pleural space: There is a right pleural effusion. No pneumothorax. Heart/Mediastinum: Unremarkable. No cardiomegaly. Bones/joints: Unremarkable. XR/XR chest 1V portable [id number] IMPRESSION: There is consolidation in the right lower lobe of the lung consistent with pneumonia. Follow-up is recommended to ensure expected resolution.If there is desire for further evaluation, a chest CT scan could be performed.
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
[2019-07-23] MEDS: HYDROcodone-acetaminophen 5-325 mg Tablet 1 TAB PO (20:03)
[2019-07-23] MEDS: bacitracin ointment Pkt 1 EACH TOPICAL (20:03)
[2019-07-23 22:31] VITALS: BP 124/98; PULSE 67; RESP 16; TEMP 36.9; O2SAT 94
== END 2019-07-23 20:08 | disposition home or self-care (01) ==
PROVIDERS: Emergency Provider Emergency Medicine
DX: T20.20XA Burn of second degree of head, face, and neck, unspecified site, initial encounter (principal); T20.24XA Burn of second degree of nose (septum), initial encounter; T20.22XA Burn of second degree of lip(s), initial encounter; J44.9 Chronic obstructive pulmonary disease, unspecified; I25.10 Atherosclerotic heart disease of native coronary artery without angina pectoris; E03.9 Hypothyroidism, unspecified; F17.200 Nicotine dependence, unspecified, uncomplicated; Z99.81 Dependence on supplemental oxygen; X08.8XXA Exposure to other specified smoke, fire and flames, initial encounter; Y92.009 Unspecified place in unspecified non-institutional (private) residence as the place of occurrence of the external cause
CPT/HCPCS: 12345; 71045; 99281; 99283